=== PATIENT | female | born 1950 | race Two or more races ===

== ENCOUNTER 2024-07-09 12:08 | Emergency (ER) | payer OTHER ==
[~2024-07-09] VITALS: Ht 167.6 cm; Wt 81.8 kg
--- NOTE | 2024-07-09 13:19 | ECG ---
[facility] Test Date: 2024-07-09 Test Time: 12:26:48 Pat Name: FLAQUITO OREILLY Department: ER Room: Gender: F Sheet Finisher: AMNA : 1950 Requested By: SABINE SOOD Order Number: [id number] Reading MD: Dane Pichardo Measurements Intervals [place] Rate: 80 P: 57 WI: 166 QRS: 44 QRSD: 79 T: 13 QT: 413 QTc: 477 Interpretive Statements Sinus rhythm Low voltage, precordial leads Electronically Signed On 07-16-2024 9:46:26 PST by Dane Pichardo Please click the below link to view image of tracing.
[2024-07-09] MEDS: HYDROcodone-ACET 5/325MG TAB PO ONE (13:30)
[2024-07-09] MEDS: METHOCARBAMOL 500 MG TAB PO ONE (13:30)
--- NOTE | 2024-07-09 13:37 | ED.PDOC ---
Mult. trauma (HPI) HPI Comments 74 y.o female presents to the ED for a chief complain of bilateral hip pain s/p assisting spouse up from a ground level fall. Patient reports while bending she felt immense pain to both hips, worse on the left side and was only able to bear minimal pain after. Patient denies falling herself and no deformities noted. P atconnor has a medical history of HTN. Chief Complaint: General Weakness Time Seen by MD: 13:25 Primary Care Provider: MALATHI Osborn notes: Nurses Notes, Medications, Allergies Allergies: Coded Allergies: NO KNOWN ALLERGIES (Unverified , 07/09/24) Information Source: Patient Mode of Arrival: Wheelchair Severity: Moderate Timing: Hours Duration: Since onset Location: (L) Hip, (R) Hip Mechanism: Flexion Associated signs and symtoms: Other (Bilateral hip pain ) Past Medical History PAST MEDICAL HISTORY: HTN Surgical History (Other): breast and bilateral hip replacement Family History Family History: Reviewed,noncontributory to illness Social History Smoker: Non-Smoker Alcohol: Denies ETOH Use Drugs: Denies Drug Use Lives In: Home Constitutional: denies: chills, diaphoresis, fatigue, fever, malaise, sweats, weakness, others EENTM: denies: blurred vision, double vision, ear bleeding, ear discharge, ear drainage, ear pain, ear ringing, eye pain, eye redness, hearing loss, mouth pain, mouth swelling, nasal discharge, nose bleeding, nose congestion, nose pain, photophobia, tearing, throat pain, throat swelling, voice changes, others Respiratory: denies: cough, hemoptysis, orthopnea, SOB at rest, shortness of breath, SOB with excertion, stridor, wheezing, others Cardiovascular: denies: chest pain, dizzy spells, diaphoresis, Dyspnea on exertion, edema, irregular heart beat, left arm pain, lightheadedness, palpitations, PND, syncope, others Gastrointestinal: denies: abdomen distended, abdominal pain, blood streaked bowels, constipated, diarrhea, dysphagia, difficulty swallowing, hematemesis, melena, nausea, poor appetite, poor fluid intake, rectal bleeding, rectal pain, vomiting, others Genitourinary: denies: abnormal vagina bleeding, burning, dyspareunia, dysuria, flank pain, frequency, hematuria, incontinence, pain, , vagina discharge, urgency, others Neurological: denies: dizziness, fainting, headache, left sided numbness, left sided weakness, numbness, paresthesia, pre-existing deficit, right sided numbness, right sided weakness, seizure, speech problems, tingling, tremors, weakness, others Musculoskeletal: reports: others (Bilateral hip pain ); denies: back pain, gout, joint pain, joint swelling, muscle pain, muscle stiffness, neck pain Integumetry: denies: bruises, change in color, change in hair/nails, dryness, laceration, lesions, lumps, rash, wounds, others Allergic/Immunocompromised: denies: Difficulty Healing, Frequent Infections, Hives, Itching, others Hematologic/Lymphatic: denies: anemia, blood clots, easy bleeding, easy b ruising, swollen glands, others Endocrine: denies: excessive hunger, excessive sweating, excessive thirst, excessive urination, flushing, intolerance to cold, intolerance to heat, unexplained weight gain, unexplained weight loss, others Psychiatric: denies: anxiety, bipolar disorder, depression, hopeless, panic disorder, schizophrenia, sleepless, suicidal, others All Other Systems: Reviewed and Negative Physical Exam General Appearance: No Apparent Distress HEENT: Other (Pupils symmetric) Neck: Full Range of Motion, Non-Tender, Normal Inspection Respiratory: Lungs Clear, No Accessory Muscle Use, No Respiratory Distress, Normal Breath Sounds Cardiovascular: No Edema, No JVD, Regular Rate/Rhythm Breast Exam: Deferred Gastrointestinal: Non Tender, Soft Genitalia: Deferred Pelvic: Deferred Rectal: Deferred Extremities: Normal inspection, Normal range of motion, No pedal edema, Other (Lower lumbar paraspinal tenderness to palpation. Increased pain with bending forward. No midline tenderness.) Neurologic: Alert (Oriented x4), Normal Affect, Normal Mood, Other (Moves all extremities with adequate strength and tone. No gross focal deficit.) Cerebellar Function: NOT DONE Reflexes: NOT DONE Skin: Dry, Normal Color, Warm Lymphatic: NOT DONE Was a procedure done? Was a procedure done?: No Differential Diagnosis Multiple Trauma: Fractures, Spine Injury, Contusion, Other (Muscle strain/spasm, radiculopathy, among others) Neck Injury: Spinal Cord Injury X-Ray, Labs, Meds, VS Vital Signs Date Time Temp Pulse Resp B/P (MAP) Pulse Ox O2 Delivery O2 Flow Rate FiO2 07/09/24 14:09 94 16 96 Room Air 07/09/24 14:09 98.1 94 16 154/74 (100) 96 98.1 07/09/24 12:26 80 07/09/24 12:25 98.3 74 16 137/77 (97) 96 Lab Test 07/09/24 15:17 07/09/24 14:01 07/09/24 12:37 Range/Units Troponin I High Sensitivity Pending 7 </=34 ng/L White Blood Count 12.5 H 4.4-10.8 10^3/uL Red Blood Count 5.46 H 4.0-5.20 10^6/uL Hemoglobin 14.1 12.2-16.2 g/dL Hematocrit 43.6 36.0-46.0 % Mean Corpuscular Volume 79.9 L 80.0-100.0 fL Mean Corpuscular Hemoglobin 25.8 L 28.0-32.0 pg Mean Corpuscular Hemoglobin Concent 32.3 32.0-36.0 g/dL Red Cell Distribution Width 15.9 H 11.8-14.3 % Platelet Count 284 140-450 10^3/uL Mean Platelet Volume 7.1 6.9-10.8 fL Neutrophils (%) (Auto) 86.7 H 37.0-80.0 % Lymphocytes (%) (Auto) 8.1 L 10.0-50.0 % Monocytes (%) (Auto) 4.8 0.0-12.0 % Eosinophils (%) (Auto) 0.1 0.0-7.0 % Basophils (%) (Auto) 0.3 0.0-2.0 % Neutrophils # (Auto) 10.8 H 1.6-8.6 10 ^3/uL Lymphocytes # (Auto) 1.0 0.4-5.4 10 ^3/uL Monocytes # (Auto) 0.6 0-1.3 10 ^3/uL Eosinophils # (Auto) 0 0-0.8 10 ^3/uL Basophils # (Auto) 0 0-0.2 10 ^3/uL Nucleated Red Blood Cells 0.0 % Sodium Level 138 136-145 mmol/L Potassium Level 3.8 3.5-5.1 mmol/L Chloride Level 105 98-107 mmol/L Carbon Dioxide Level 23 20-31 mmol/L Anion Gap 10 5-15 Blood Urea Nitrogen 11 9-23 mg/dL Creatinine 0.84 0.550-1.02 mg/dL Glomerular Filtration Rate Calc 72 >90 mL/min BUN/Creatinine Ratio 13.1 10.0-20.0 Serum Glucose 160 H 74-106 mg/dL Calcium Level 9.9 8.7-10.4 mg/dL B-Type Natriuretic Peptide 56.72 0-100 pg/mL Urine Color Light-yellow Yellow Urine Clarity Clear Clear Urine pH 7.0 5.0-9.0 Urine Specific [place] 1.016 1.001-1.035 Urine Protein Trace H Negative Urine Ketones Negative Negative Urine Blood Negative Negative /uL Urine Nitrite Negative Negative Urine Bilirubin Negative Negative Urine Urobilinogen Normal Negative mg/dL Urine Leukocyte Esterase Negative Negative /uL Urine RBC 1 0 - 4 /hpf Urine WBC 3 0 - 5 /hpf Urine Squamous Epithelial Cells Few <5 /hpf Urine Bacteria Few H None Seen /hpf Urine Mucus Few None Seen Urine Glucose Normal Normal mg/dL Current Medications Medications (Trade) Dose Ordered Sig/David Route Start Time Stop Time Status Last Admin Ketorolac Tromethamine (Toradol Injection) 45 mg ONCE ONCE IM 07/09/24 15:00 07/09/24 15:01 DC 07/09/24 15:10 [place] [address] Ph: [phone] DIAGNOSTIC IMAGING Diagnostic Imaging Report : [id number] Signed PATIENT: FLAQUITO OREILLY ACCT: [id number] UNIT: [id number] : 1950 LOC: ER ROOM / BED: / AGE / SEX: 74 / F ADM STATUS: REG ER SERVICE 1329 ORDERING PHYSICIAN: SABINE WRIGHT MD PROCEDURE(s): LS2CT - LS SPINE WO CONTRAST REASON: low back pain s/p heavy lifting ORDER NUMBER(s): [id number], ACCESSION NUMBER(s): [id number] CT LS SPINE WO CONTRAST Date: 07/09/2024 01:36 PM History: low back pain s/p heavy lifting Comparison: None TECHNIQUE: Multiple axial CT images of the lumbosacral spine were obtained using bone algorithm. Axial and coronal reformatting was done. Bone and soft tissue windows were reviewed. Radiation Dose Information: CT Dose: CTDI volume is 27.39 mGy. Dose-length product is 840.35 mGy*cm FINDINGS: No CT evidence of definite acute fracture, spinal dislocation, or significant appearing acute subluxation is seen. The visualized paraspinal soft tissues are grossly unremarkable. Mild biconcave compression of L3 age indeterminate T12-L1 There is no evidence of central spinal canal or neuroforaminal stenosis. L1-L2 There is no evidence of central spinal canal or neuroforaminal stenosis. L2-L3 There is no evidence of central spinal canal or neuroforaminal stenosis. Mild biconcave compression of L3 without displacement. Mild central spinal canal stenosis at L3-4 measuring 8-9 mm. L3-L4 bi concave compression of L3. Mild diffuse annular bulge of the disc with mild central spinal canal stenosis. ( 8-9 mm). L4-L5 grade 1 anterior spondylolisthesis L4 over L5 with eqiv-si-oczkigfy spinal stenosis. Thecal sac is compressed to a 7 8 mm front to back dimension. There are hypertrophic arthritic changes of the posterior articular facets and ligamentum flavum bilaterally. L5-S1 There is no evidence of central spinal canal or neuroforaminal stenosis. IMPRESSION: 1. No definite CT evidence of acute fracture or dislocation of the bony lumbar spine. 2. Mild biconcave nondisplaced fracture of L3 consistent with osteoporosis. 3. Mild spinal stenosis at L3-4 and L4-5. 4. Grade 1 anterior spondylolisthesis at L4-[address] scans at this medical facility are performed using dose modulation techniques as appropriate to a performed exam including the following: Automated exposure control was utilized; adjustment of the MA and/or KV according to patient size; and use of iterative reconstruction technique. ATED BY: ABIMAEL OWEN Jr., DO DICTATED DATE/TIME: 07/09/241419 SIGNED BY: ABIMAEL OWEN Jr., SIGNED DATE/TIME: 07/09/241419 CC: [place] [address] Ph: [phone] DIAGNOSTIC IMAGING Diagnostic Imaging Report : [id number] Signed PATIENT: FLAQUITO OREILLY ACCT: [id number] UNIT: [id number] : 1950 LOC: ER ROOM / BED: / AGE / SEX: 74 / F ADM STATUS: REG ER SERVICE 1329 ORDERING PHYSICIAN: SABINE WRIGHT MD PROCEDURE(s): PL2CT - PELVIS WO CONTRAST REASON: L>R hip pain s/p heavy lifting ORDER NUMBER(s): [id number], ACCESSION NUMBER(s): [id number] Exam: CT PELVIS WO CONTRAST History: L>R hip pain s/p heavy lifting Comparison Study: None available at time of dictation. TECHNIQUE: Multidetector CT of the pelvis without contrast. Axial, coronal and sagittal multiplanar reformats were obtained from the axial data set by the technologist. Radiation Dose Information: CT Dose: CTDI volume is 22.62 mGy. Dose-length product is 848.06 mGy*cm FINDINGS: There is diffuse demineralization. There is bilateral total hip replacement with intact hardware limited evaluation of the adjacent structures due to streak artifact from the hardware. No dislocation. No acute fractures are visualized. The soft tissues are unremarkable. Tiny fat containing umbilical hernia. Large amount of fecal material within the rectum. Streak artifact from bilateral hip prosthesis limits evaluation of the intrapelvic structures. IMPRESSION: Bilateral total hip replacement with intact hardware and streak artifact from the hardware limiting evaluation of the adjacent structures. Otherwise, no evidence of acute traumatic fractures. No dislocation. ATED BY: RACHEL LAZARO DO DICTATED DATE/TIME: 07/09/241414 SIGNED BY: RACHEL LAZARO DO SIGNED DATE/TIME: 07/09/241414 CC: X-Ray, Labs, Meds, VS Comment 74-year-old female with a history of hypertension complaining of bilateral hip and low back pain status post heavy lifting Vitals unremarkable Exam remarkable for lower lumbar paraspinal soft tissue tenderness to palpation and pain in that same area with bending forward CT lumbar: IMPRESSION: 1. No definite CT evidence of acute fracture or dislocation of the bony lumbar spine. 2. Mild biconcave nondisplaced fracture of L3 consistent with osteoporosis. 3. Mild spinal stenosis at L3-4 and L4-5. 4. Grade 1 anterior spondylolisthesis at L4-5 CT pelvis: IMPRESSION: Bilateral total hip replacement with intact hardware and streak artifact from the hardware limiting evaluation of the adjacent structures. Otherwise, no evidence of acute traumatic fractures. No dislocation. CBC remarkable for WBC 12.5, basic metabolic panel, BNP, troponin and urinalysis unremarkable for any abnormality of acute significance Patient treated with the following in the ED: Toradol 45 mg IM. On re-evaluation, patient stated pain had improved. Vitals were stable. Hospitalization was considered, however patient had rapid improvement of her symptoms with treatment in the ED, and patient stated she did not want to be hospitalized. I discussed the case with Malathi THOMPSON RP, and they will arrange for the patient's primary doctor to follow up with the patient closely for referral to an orthopedist/grant specialist and/or painter foreman. Rx meloxicam Time of 1ST Reevaluation: 13:31 Reevaluation 1ST: Unchanged Time of 2ND Reevaluation: 16:22 Reevaluation 2ND: Improved Patient Education/Counseling: Diagnosis, Treatment, Prognosis Family Education/Counseling: No Family Present Departure 1 Departure Time of Disposition: 16:22 Impression: Primary Impression: Lumbar strain Qualified Codes: S39.012A - Strain of muscle, fascia and tendon of lower back, initial encounter Additional Impression: Hip strain Qualified Codes: S76.019A - Strain of muscle, fascia and tendon of unspecified hip, initial encounter Disposition: 01 HOME / SELF CARE / HOMELESS Condition: Stable Additional Instructions: Your blood and urine tests were unremarkable. Your CT reports are below. I spoke with Malathi, and they have informed your primary doctor to follow-up with you for further evaluation with pain management and/or a grant specialist. I have prescribed meloxicam. [place] [address] Ph: [phone] DIAGNOSTIC IMAGING Diagnostic Imaging Report : [id number] Signed PATIENT: FLAQUITO OREILLY ACCT: [id number] UNIT: [id number] : 1950 LOC: ER ROOM / BED: / AGE / SEX: 74 / F ADM STATUS: REG ER SERVICE 1329 ORDERING PHYSICIAN: SABINE WRIGHT MD PROCEDURE(s): LS2CT - LS SPINE WO CONTRAST REASON: low back pain s/p heavy lifting ORDER NUMBER(s): [id number], ACCESSION NUMBER(s): [id number] CT LS SPINE WO CONTRAST Date: 07/09/2024 01:36 PM History: low back pain s/p heavy lifting Comparison: None TECHNIQUE: Multiple axial CT images of the lumbosacral spine were obtained using bone algorithm. Axial and coronal reformatting was done. Bone and soft tissue windows were reviewed. Radiation Dose Information: CT Dose: CTDI volume is 27.39 mGy. Dose-length product is 840.35 mGy*cm FINDINGS: No CT evidence of definite acute fracture, spinal dislocation, or significant appearing acute subluxation is seen. The visualized paraspinal soft tissues are grossly unremarkable. Mild biconcave compression of L3 age indeterminate T12-L1 There is no evidence of central spinal canal or neuroforaminal stenosis. L1-L2 There is no evidence of central spinal canal or neuroforaminal stenosis. L2-L3 There is no evidence of central spinal canal or neuroforaminal stenosis. Mild biconcave compression of L3 without displacement. Mild central spinal canal stenosis at L3-4 measuring 8-9 mm. L3-L4 bi concave compression of L3. Mild diffuse annular bulge of the disc with mild central spinal canal stenosis. ( 8-9 mm). L4-L5 grade 1 anterior spondylolisthesis L4 over L5 with kyft-gk-sghktsnx spinal stenosis. Thecal sac is compressed to a 7 8 mm front to back dimension. There are hypertrophic arthritic changes of the posterior articular facets and ligamentum flavum bilaterally. L5-S1 There is no evidence of central spinal canal or neuroforaminal stenosis. IMPRESSION: 1. No definite CT evidence of acute fracture or dislocation of the bony lumbar spine. 2. Mild biconcave nondisplaced fracture of L3 consistent with osteoporosis. 3. Mild spinal stenosis at L3-4 and L4-5. 4. Grade 1 anterior spondylolisthesis at L4-[address] scans at this medical facility are performed using dose modulation techniques as appropriate to a performed exam including the following: Automated exposure control was utilized; adjustment of the MA and/or KV according to patient size; and use of iterative reconstruction technique. [place] [id number] [facility] [id number] Ph: [phone] DIAGNOSTIC IMAGING Diagnostic Imaging Report : [id number] Signed PATIENT: FLAQUITO OREILLY ACCT: [id number] UNIT: [id number] : 1950 LOC: ER ROOM / BED: / AGE / SEX: 74 / F ADM STATUS: REG ER SERVICE 1329 ORDERING PHYSICIAN: SABINE WRIGHT MD PROCEDURE(s): PL2CT - PELVIS WO CONTRAST REASON: L>R hip pain s/p heavy lifting ORDER NUMBER(s): [id number], ACCESSION NUMBER(s): [id number] Exam: CT PELVIS WO CONTRAST History: L>R hip pain s/p heavy lifting Comparison Study: None available at time of dictation. TECHNIQUE: Multidetector CT of the pelvis without contrast. Axial, coronal and sagittal multiplanar reformats were obtained from the axial data set by the technologist. Radiation Dose Information: CT Dose: CTDI volume is 22.62 mGy. Dose-length product is 848.06 mGy*cm FINDINGS: There is diffuse demineralization. There is bilateral total hip replacement with intact hardware limited evaluation of the adjacent structures due to streak artifact from the hardware. No dislocation. No acute fractures are visualized. The soft tissues are unremarkable. Tiny fat containing umbilical hernia. Large amount of fecal material within the rectum. Streak artifact from bilateral hip prosthesis limits evaluation of the intrapelvic structures. IMPRESSION: Bilateral total hip replacement with intact hardware and streak artifact from the hardware limiting evaluation of the adjacent structures. Otherwise, no evidence of acute traumatic fractures. No dislocation. e-Prescriptions Meloxicam (Meloxicam) 7.5 Mg Tab 1-2 TAB PO DAILY PRN, #30 TAB 2 Refills prn pain Prov: SABINE WRIGHT MD 07/09/24 Discharged With: Relative Critical Care Note Critical Care Time?: No Stability Stability form required: No I personally scribed for SABINE WRIGHT MD ([email or web address]) on 07/09/24 at 13:37. Electronically submitted by Gabbie Kimball ([facility]). I personally scribed for SABINE WRIGHT MD ([email or web address]) on 07/09/24 at 14:40. Electronically submitted by Gabbie Kimball ([facility]). SABINE WRIGHT MD Jul 09, 2024 13:37
[2024-07-09 14:09] VITALS: TEMP 98.1
--- NOTE | 2024-07-09 14:17 | DVH ---
Exam: CT PELVIS WO CONTRAST History: L>R hip pain s/p heavy lifting Comparison Study: None available at time of dictation. TECHNIQUE: Multidetector CT of the pelvis without contrast. Axial, coronal and sagittal multiplanar r eformats were obtained from the axial data set by the technologist. Radiation Dose Information: CT Dose: CTDI volume is 22.62 mGy. Dose-length product is 848.06 mGy*cm FINDINGS: There is diffuse demineralization. There is bilateral total hip replacement with intact hardware limi gary evaluation of the adjacent structures due to streak artifact from the hardware. No dislocation. No acute fractures are visualized. The soft tissues are unremarkable. Tiny fat containing umbilical hernia. Large amount of fecal materi al within the rectum. Streak artifact from bilateral hip prosthesis limits evaluation of the intrapel rc structures. IMPRESSION: Bilateral total hip replacement with intact hardware and streak artifact from the hardware limiting e valuation of the adjacent structures. Otherwise, no evidence of acute traumatic fractures. No disloc ation.
[2024-07-09 14:23] LABS: Basophils # (auto) 0 10 ^3/uL (0-0.2); Eosinophils # (auto) 0 10 ^3/uL (0-0.8); Eosinophils % (auto) 0.1 % (0.0-7.0); Platelet Count (auto) 284 10^3/uL (140-450); White Blood Cell 12.5 10^3/uL (4.4-10.8)
--- NOTE | 2024-07-09 14:23 | DVH ---
CT LS SPINE WO CONTRAST Date: 07/09/2024 01:36 PM History: low back pain s/p heavy lifting Comparison: None TECHNIQUE: Multiple axial CT images of the lumbosacral spine were obtained using bone algorithm. Axial and coron al reformatting was done. Bone and soft tissue windows were reviewed. Radiation Dose Information: CT Dose: CTDI volume is 27.39 mGy. Dose-length product is 840.35 mGy*cm FINDINGS: No CT evidence of definite acute fracture, spinal dislocation, or significant appearing acute subluxa tion is seen. The visualized paraspinal soft tissues are grossly unremarkable. Mild biconcave compression of L3 age indeterminate T12-L1 There is no evidence of central spinal canal or neuroforaminal stenosis. L1-L2 There is no evidence of central spinal canal or neuroforaminal stenosis. L2-L3 There is no evidence of central spinal canal or neuroforaminal stenosis. Mild biconcave lyly leonides of L3 without displacement. Mild central spinal canal stenosis at L3-4 measuring 8-9 mm. L3-L4 bi concave compression of L3. Mild diffuse annular bulge of the disc with mild central spinal c anal stenosis. ( 8-9 mm). L4-L5 grade 1 anterior spondylolisthesis L4 over L5 with idwy-fu-mzzpepsn spinal stenosis. Thecal sa c is compressed to a 7 8 mm front to back dimension. There are hypertrophic arthritic changes of the posterior articular facets and ligamentum flavum bilaterally. L5-S1 There is no evidence of central spinal canal or neuroforaminal stenosis. IMPRESSION: 1. No definite CT evidence of acute fracture or dislocation of the bony lumbar spine. 2. Mild biconcave nondisplaced fracture of L3 consistent with osteoporosis. 3. Mild spinal stenosis at L3-4 and L4-5. 4. Grade 1 anterior spondylolisthesis at L4-[address] scans at this medical facility are performed using dose modulation techniques as appropriate t o a performed exam including the following: Automated exposure control was utilized; adjustment of th e MA and/or KV according to patient size; and use of iterative reconstruction technique.
[2024-07-09 14:25] LABS: Basophils % (auto) 0.3 % (0.0-2.0); Hematocrit 43.6 % (36.0-46.0); Hemoglobin 14.1 g/dL (12.2-16.2); Lymphocytes % (auto) 8.1 % (10.0-50.0); Mean Corpuscular Hemoglobin 25.8 pg (28.0-32.0); Mean Corpuscular Hgb Conc. 32.3 g/dL (32.0-36.0); Mean Corpuscular Volume 79.9 fL (80.0-100.0); Monocytes # (auto) 0.6 10 ^3/uL (0-1.3); Monocytes % (auto) 4.8 % (0.0-12.0); Neutrophils # (auto) 10.8 10 ^3/uL (1.6-8.6); Neutrophils % (auto) 86.7 % (37.0-80.0); Red Blood Cells 5.46 10^6/uL (4.0-5.20); Red Cell Distribution Width 15.9 % (11.8-14.3)
[2024-07-09 14:38] LABS: Chloride 105 mmol/L (98-107); Potassium 3.8 mmol/L (3.5-5.1); Sodium 138 mmol/L (136-145)
[2024-07-09 14:39] LABS: Anion Gap 10 (5-15); Calcium 9.9 mg/dL (8.7-10.4); Carbon Dioxide 23 mmol/L (20-31)
[2024-07-09 14:44] LABS: BUN/Creatinine Ratio 13.1 (10.0-20.0); Blood Urea Nitrogen 11 mg/dL (9-23)
[2024-07-09 14:58] LABS: Glucose 160 mg/dL (74-106)
[2024-07-09] MEDS: KETOROLAC TROMETH 60MG/2ML VIAL IM ONE (15:10)
[2024-07-09 15:47] LABS: Urine Bacteria FEW /hpf (None Seen); Urine Blood Negative /uL (Negative); Urine Clarity Clear (Clear); Urine Color Light-Yellow (Yellow); Urine Mucus FEW (None Seen); Urine Protein, UAD TRACE (Negative); Urine Specific Gravity 1.016 (1.001-1.035); Urine Urobilinogen Normal (Negative); Urine WBC 3 /hpf (0 - 5)
[2024-07-09] MEDS ORDERED: MELO7.5T7 PO (16:31)
[2024-07-09 16:56] VITALS: BP 169/92; PULSE 89; RESP 15; O2SAT 94
== END 2024-07-09 16:57 | disposition home or self-care (01) ==
LOC: ER 12:08
DX: S39.012A Strain of muscle, fascia and tendon of lower back, initial encounter (principal); S76.012A Strain of muscle, fascia and tendon of left hip, initial encounter; S76.011A Strain of muscle, fascia and tendon of right hip, initial encounter; I10 Essential (primary) hypertension; Z98.890 Other specified postprocedural states; W18.39XA Other fall on same level, initial encounter; Y93.89 Activity, other specified; Y92.89 Other specified places as the place of occurrence of the external cause; Y99.8 Other external cause status
CPT/HCPCS: 36415; 72131; 72192; 80048; 81001; 83880; 84484; 85025; 93005; 96372; 99285; J1885